=== PATIENT | female | born 1945 | race Caucasian/White ===

== ENCOUNTER → 2018-06-22 | Outpatient (CLI) | payer MEDICARE | LOC: M RAD 08:48 | DX: Z12.2 Encounter for screening for malignant neoplasm of respiratory organs (principal); F17.218 Nicotine dependence, cigarettes, with other nicotine-induced disorders; R91.8 Other nonspecific abnormal finding of lung field; J43.9 Emphysema, unspecified | CPT/HCPCS: G0297 ==

== ENCOUNTER → 2018-08-18 | Outpatient (CLI) | payer MEDICARE | LOC: M RAD 12:17 | DX: K57.90 Diverticulosis of intestine, part unspecified, without perforation or abscess without bleeding (principal); R10.12 Left upper quadrant pain; Z90.49 Acquired absence of other specified parts of digestive tract; Z90.710 Acquired absence of both cervix and uterus | CPT/HCPCS: 74176 ==

== ENCOUNTER → 2019-01-02 | Outpatient (CLI) | payer MEDICARE ==
--- NOTE | 2019-01-02 10:28 | REP ---
Clinical: Follow up abnormal lung findings. Comparison: 06/22/2018, 07/18/2017. Findings: The previously identified subpleural nodule along the posterior aspect of the right upper lobe has significantly increased in size and now measures approximately 1.9 cm maximal diameter (images [id number]). Advanced chronic COPD/emphysematous changes with subpleural scarring and scattered fibrosis is again appreciated and similar to prior examination. No effusion. No pneumothorax. Mediastinal and hilar adenopathy cannot be excluded. Aneurysmal dilatation to the ascending and descending thoracic aorta with the descending thoracic aorta measuring up to approximately 4.7 cm maximal diameter. Atherosclerotic changes to the aorta and coronary arteries noted without significant cardiomegaly or pericardial effusion identified. Impression: 1. 1.9 cm mass in the periphery of the posterior segment right upper lobe has increased in size from prior examination. Malignancy cannot be excluded. Biopsy as well as PET-CT should be considered for further investigation. Mediastinal adenopathy cannot be excluded. 2. Advanced chronic COPD and emphysematous changes with minimal scattered subpleural fibrosis and scarring similar to prior examination. 3. Thoracic aortic aneurysm with the descending aneurysm measuring 4.7 cm maximal diameter. Electronically Signed by Graham Cortez MD 01/02/2019 10:20 A
== END ==
LOC: M RAD 08:20
PROVIDERS: ATTEND Internal Medicine Pulmonary Disease
DX: R91.8 Other nonspecific abnormal finding of lung field (principal)

== ENCOUNTER → 2019-01-16 | Outpatient (CLI) | payer MEDICARE ==
[~2019-01-16] MED LIST: AMLO5TAB6 PO; ANOR1AER PO; ATOR1TAB21 PO; COLA100C5 PO; DEXI30CA2 PO; DRIS50003 PO; HYDR-3910 PO; RANI1TAB6 PO; SERT25TA85 PO; VENTAER INH
--- NOTE | 2019-01-16 21:03 | REP ---
Whole body PET CT scan for evaluation of a solitary pulmonary nodule: Comparison is a chest CT dated 01/02/2019. Whole-body scanning is performed from skull base to the upper thighs. Neck and supraclavicular areas: There is hypermetabolic uptake in multiple normal size cervical nodes bilaterally, the maximal standard uptake value is 6.9. There is hypermetabolic uptake in multiple normal size supraclavicular nodes bilaterally. The maximal standard uptake value in these nodes is 6.6. Chest: The known right upper lobe lung nodule demonstrates hypermetabolic uptake with a maximal standard uptake value of 11.9. There is hypermetabolic uptake in a normal size aorticopulmonic window mediastinal node with the aid uptake value measuring 4.8. There is uptake in a normal size subcarinal node with the standard uptake value measuring 4.3. No hilar or axillary uptake is identified. The ascending thoracic aorta is dilated measuring up to 45 mm. The proximal descending thoracic aorta is dilated measuring up to 47 mm. Abdomen, pelvis and upper thighs: There is no adrenal or hepatic uptake. There is nonspecific bowel uptake. There are no hypermetabolic foci otherwise. Impression: The patients known right upper lobe lung nodule is hypermetabolic. There are multiple normal size cervical nodes in the neck and supraclavicular nodes bilaterally that demonstrate hypermetabolic uptake. There is hypermetabolic uptake in a normal size aorticopulmonic window mediastinal node and in a normal size subcarinal mediastinal node. No other hypermetabolic foci are identified. The ascending and descending thoracic aorta are dilated as discussed. The study is performed with 8.2 mCi of F 18 FDG. Electronically Signed by Devan Bellamy MD 01/16/2019 08:54 P
== END ==
LOC: M PLARAD 13:12
PROVIDERS: ATTEND Internal Medicine Pulmonary Disease
DX: R91.1 Solitary pulmonary nodule (principal)
CPT/HCPCS: 78815; A9552

== ENCOUNTER → 2019-01-23 | Outpatient (REF) | payer MEDICARE ==
[2019-01-23 17:59] LABS: INR 1.05; PROTHROMBIN TIME 13.8 SECONDS (12.1-14.4)
[2019-01-23 18:00] LABS: PARTIAL THROMBOPLASTIN TIME 28.5 SECONDS (25.4-37.6)
== END ==
LOC: M LAB REF 17:04
PROVIDERS: ATTEND Internal Medicine Pulmonary Disease
DX: R91.1 Solitary pulmonary nodule (principal)

== ENCOUNTER 2019-02-07 08:22 | Inpatient (IN) | payer MEDICARE ==
[~2019-02-07] VITALS: Ht 157.5 cm; Wt 59.4 kg
[2019-02-07] VITALS (12 sets, daily range): BP systolic 90–182; BP diastolic 51–82
[~2019-02-07 08:22] MED LIST changes: -AMLO5TAB6 PO; -ANOR1AER PO; -ATOR1TAB21 PO; -COLA100C5 PO; -DEXI30CA2 PO; -DRIS50003 PO; -HYDR-3910 PO; +LIDOCAINE 1% MDV 20ML VIAL As Ordered ONE; -RANI1TAB6 PO; -SERT25TA85 PO; -VENTAER INH
[2019-02-07] MEDS ORDERED: RANI1TAB6 PO (08:39)
[2019-02-07] MEDS ORDERED: DEXI30CA2 PO (08:39)
[2019-02-07] MEDS ORDERED: DRIS50003 PO (08:39)
[2019-02-07] MEDS ORDERED: HYDR-3910 PO (08:39)
[2019-02-07] MEDS ORDERED: ANOR1AER PO (08:39)
[2019-02-07] MEDS ORDERED: SERT25TA85 PO (08:39)
[2019-02-07] MEDS ORDERED: ATOR1TAB21 PO (08:39)
[2019-02-07] MEDS ORDERED: VENTAER INH (08:39)
[2019-02-07] MEDS ORDERED: AMLO5TAB6 PO (08:39)
[2019-02-07] MEDS: amLODIPine 10 MG TAB PO SCH (09:00)
--- NOTE | 2019-02-07 10:35 | REP ---
CHEST, SINGLE VIEW: Single view of the chest is performed. There is a right apical pneumothorax with air gap approximately 3.3 cm. The patient is status post CT guided biopsy of a right lung nodule. Followup chest radiograph will be performed. Electronically Signed by Devan De La Rosa MD 02/07/2019 04:33 P
[2019-02-07] MEDS ORDERED: MIDAZOLAM INJ 2 MG/2 ML VIAL (J2250) As Ordered ONE (12:47)
[2019-02-07] MEDS ORDERED: MIDAZOLAM INJ 2 MG/2 ML VIAL (J2250) IV STA ×2 (13:01→14:15)
[2019-02-07] MEDS ORDERED: fentaNYL 100 MCG/2 ML INJECTION (J3010) As Ordered ONE (13:10)
[2019-02-07] MEDS ORDERED: LIDOCAINE 1% MDV 20ML VIAL As Ordered ONE (13:11)
[2019-02-07] MEDS ORDERED: fentaNYL 100 MCG/2 ML INJECTION (J3010) IV ONE (13:15)
--- NOTE | 2019-02-07 13:33 | REP ---
CHEST, POSTBIOPSY: Postbiopsy film of the chest is performed [address] guided right lung biopsy. Right pneumothorax has increased in size. Air gap superiorly is approximately 4.2 cm. There are atelectatic changes of the right lung. Electronically Signed by Devan De La Rosa MD 02/07/2019 04:36 P
[2019-02-07] MEDS ORDERED: ACETAMINOPHEN TAB 650MG DOSE (2X325MG) PO PRN (14:30)
[2019-02-07] MEDS ORDERED: BISACODYL 10 MG SUPP PR PRN (14:30)
[2019-02-07] MEDS ORDERED: PERCOCET 5MG/325MG TAB PO PRN (14:30)
[2019-02-07 14:35] LABS: ABG BASE EXCESS -2.5 (-2.0-2.0); ABG HCO3 22.9 MEQ/L (22.0-26.0); ABG O2 SATURATION 94.3 % (95.0-99.0); ABG PARTIAL PRESSURE CO2 42.1 mmHg (35.0-45.0); ABG PARTIAL PRESSURE O2 88.8 mmHg (75.0-100.0); ABG STANDARD HCO3 22.3 MEQ/L (22.0-26.0); ABG TOTAL CO2 24.2 MEQ/L (23.0-31.0); ABG pH (ARTERIAL) 7.354 UNITS (7.350-7.450)
[2019-02-07] MEDS: PERCOCET 5MG/325MG TAB PO PRN ×2 (14:35→19:53)
[2019-02-07] MEDS: KETOROLAC 30 MG/ML VIAL (J1885) IV SCH ×2 (14:36→21:11)
[2019-02-07] MEDS: ENOXAPARIN 40 MG/0.4 ML SYRINGE (J1650) SC SCH (14:57)
--- NOTE | 2019-02-07 14:58 | RO ---
DATE OF PROCEDURE: 02/07/2019 PREPROCEDURE DIAGNOSIS: Pneumothorax. POSTPROCEDURE DIAGNOSIS: Pneumothorax. PROCEDURE PERFORMED: Right chest tube. SURGEON: Satinder Gambino DO CHIEF ARCHITECT: None. ANESTHESIA: 6 of Versed IV and 50 mcg of IV fentanyl. CONSENT: Was signed and placed in the chart. DESCRIPTION OF PROCEDURE: After informed consent was reviewed with the patient, a time-out was performed. The patient was placed in the supine position. Confirming with chest x-ray and location of pneumothorax and recent biopsy, the right side was confirmed with two patient identifiers assuring appropriate procedure and appropriate side. The area was prepped with chlorhexidine in sterile barrier precautions. I then introduced 1% lidocaine subcutaneously, then down to the level of the pleura. There was aspiration of air through the syringe when entering the pleura. A enoch in the skin was made. Dissection was then performed down to the level of over the 5th rib. At upon entering the pleura over the 5th rib, there was a diaz of air. The chest tube was then inserted, guided towards the apex of the lung. The stylus was removed, and a 20-L[place]ian chest tube was then attached to pleurovac, initially with a little bit of air and then tidaling. Of note, when suturing, there was quite a bit of crepitus. This was sutured in place and pressure dressing applied over the site . Chest tube was then put to negative 20 cm of water pressure. The patient is still experiencing some chest discomfort. Chest x-ray showed adequate placement of the tube in the appropriate position with resolution of the pneumothorax with subcutaneous emphysema adjacent to the entry of the chest tube. There were no observed complications. SERA
[2019-02-07] MEDS ORDERED: LIDOCAINE 1% MDV INJ 50 ML VIAL SC ONE (15:00)
[2019-02-07] MEDS: SERTRALINE HCL 25 MG TABLET PO SCH (15:01)
[2019-02-07] MEDS ORDERED: LIDOCAINE 1% MDV 20ML VIAL SC ONE (15:15)
--- NOTE | 2019-02-07 15:37 | REP ---
Clinical: Status post chest tube placement. Comparison: 02/07/2019 at 10:14 a.m. Findings: Chest tube extends along the periphery of the right upper lung zone and the right upper lobe appears relatively well expanded without obvious significant residual pneumothorax. Subcutaneous emphysema along the lateral chest wall noted. The lung gomez demonstrate increased interstitial markings. No focal consolidation or effusion. Mediastinum and cardiac silhouette are stable. Skeletal structures are intact. Impression: 1. Chest tube in satisfactory position with subcutaneous emphysema along the right lateral chest wall. 2. No significant residual right apical pneumothorax appreciated. Electronically Signed by Graham Cortez MD 02/07/2019 03:29 P
--- NOTE | 2019-02-07 15:50 | HPE ---
DATE OF ADMISSION: 02/07/2019 HISTORY OF PRESENT ILLNESS: Ms. Aquino is a 73-year-old female referred for biopsy of a right upper lobe nodule that was hypermetabolic on positron-emission tomography (PET) imaging by Dr. Burt. There is concern for underlying malignancy. During the procedure, the patient developed a pneumothorax. There was continued persistent pneumothorax at least 40%. The patient denied any significant increase in shortness of breath, no increase in chest discomfort, but was quite nervous and hypertensive. She did not take her blood pressure medications this morning. She has a baseline cough which is occasionally productive of clear yellow mucus but there has been no significant change in her cough. She has had no fever or chills but she has had weight loss. I was called by radiology for chest tube placement. I performed this in the intensive care unit. After chest tube placement, there was resolution of the pneumothorax with evidence of subcutaneous emphysema. PAST MEDICAL HISTORY: 1. Emphysema. 2. Chronic obstructive pulmonary disease (COPD). 3. Hypertension. 4. Status post hysterectomy. 5. Status post right knee surgery. 6. Status post bowel resection. 7. Left hand surgery. 8. Gastroesophageal reflux. 9. History of rheumatoid arthritis. 10. History of nicotine dependence. 11. Vitamin D deficiency. MEDICATIONS: - albuterol two puffs inhaled every four hours - amlodipine 10 mg by mouth daily - Anoro one puff by mouth daily - atorvastatin 20 mg by mouth at bedtime - Dexilant 30 mg by mouth daily - hydralazine 25 mg by mouth twice a day - ranitidine one tablet by mouth twice a day - sertraline 25 mg by mouth daily - vitamin D 50,000 units every week ALLERGIES: No known drug allergies (NKDA). SOCIAL HISTORY: The patient has a 40-pack year history of smoking. She has no illicit drug use and no alcohol use. She lives with her who has had a stroke, has some difficulties in getting out of the home and understanding clinical situation. She has one dog. No birds in her home. She denies any asbestos exposures. No prior occupational exposures. 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 FAMILY HISTORY: Mother had hypertension and congestive heart failure. Father at age 77 with colon cancer. Brother had a myocardial infarction ([place]) at 65. REVIEW OF SYSTEMS: GENERAL: The patient has had a 45-pound weight loss over the past 6-8 months. No night sweats, fever, or chills. She denies that she has noticed any lymphadenopathy. CARDIAC: She denies any chest pain. No anginal symptoms. No radiation to the neck or jaw. She has no history of palpitations. She has no orthopnea or lower extremity edema. She denies symptoms of claudication. PULMONARY: Positive cough that is unchanged as outlined above. She has had no hemoptysis. No pleurisy until after the chest tube was placed. No history of tuberculosis or tuberculosis exposure. GASTROINTESTINAL (GI): No nausea or vomiting but she has had recurrent gastroesophageal reflux symptoms to the point where she has had multiple endoscopies. She has enlarged hiatal hernia on chest CT. No recent blood in stool. No change in bowel habits. GENITOURINARY (): No burning or pain with urination. No hematuria, nocturia, or history of nephrolithiasis. NEUROLOGIC: No unilateral weakness, history of stroke. No history of tremor. She denies history of seizure disorder. No recent head trauma. PSYCHIATRIC: Some anxiety, minimal depression. Currently, mood is fairly upbeat despite the situation. She has no mood swings. No suicidal ideation. SLEEP: She has no difficulty with sleep. No snoring, witnessed apneas. No morning headaches. SKIN: No rashes, jaundice or bruising. ENDOCRINE: No hot or cold intolerance. No history of diabetes, hypothyroidism, or hair loss. HEENT: No epistaxis. No difficulty swallowing. No change in vision. PHYSICAL EXAMINATION: On arrival to the intensive care unit (ICU), the patient was actually quite hypertensive with a systolic blood pressure of 181. Blood pressure now after pain medication, Versed is 102/73 with a respiratory rate of 28, temperature is 99.1, pulse is 70-102 in a sinus rhythm, respiratory rate of 18, oxygen saturations initially 94% to 95% on four liters, now closer to 96% to 97% on four liters. GENERAL: Awake, alert, and oriented. Affect and mood are appropriate. Nutrition and hygiene are good. Oral and nasal mucosa pink and moist without lesions. Oropharynx without erythema or exudate. Tongue is midline. Some missing teeth. NECK: Supple. No tracheal deviation or mass. LYMPHATICS: No cervical, supraclavicular, or axillary lymphadenopathy. CARDIAC: Distant S1, S2 without audible murmur, rub or gallop. No elevated jugular venous pulse (JVP). No peripheral edema. PULMONARY: Decreased breath sounds throughout with prolonged expiratory phase. No rales, rhonchi or wheezes. No dullness to percussion. No accessory muscle use. ABDOMEN: Soft, nontender, nondistended. No hepatosplenomegaly. No masses or hernias. EXTREMITIES: No clubbing, cyanosis, or edema. SKIN: No rash, jaundice, or bruising. MUSCULOSKELETAL: Some muscle wasting. No evidence of recent fracture or joint effusion. LABORATORY EVALUATION: Shows chest CT showed right pneumothorax. All other laboratories are pending. Chest x-ray was reviewed and as mentioned above, 40% pneumothorax non-resolving over time, therefore chest tube was placed at bedside. There are no other abnormalities that are new. No infiltrate. IMPRESSION: 1. Pneumothorax, status post biopsy. Chest tube was placed at bedside. We will place at 20 mg to water suction. If continues to do well, we will place to water seal tomorrow. Patient having significant amounts of pain after chest tube placement. Therefore, narcotics are being used along with ketorolac. We will continue to monitor renal function especially due to the age of the patient. Oxygen will continue to be supplied in order to help resorption of the pneumothorax. Nebulized therapy for history of emphysema will also be continued. 2. Hypertension. Blood pressure medications were reinitiated, however, at this point in time, are being held as her recent sedation from the procedure has caused a softer blood pressure. We will continue to monitor for the need for additional antihypertensives. 3. Gastroesophageal reflux. We will continue proton pump inhibitor. 4. Depression. We will continue sertraline.
[2019-02-07] MEDS: IPRATROPIUM 0.5MG/ALBUTEROL 2.5MG INH SOL UD 3ML (DUONEB)(J7620) NEB SCH ×2 (16:00→19:19)
[2019-02-07 16:17] LABS: ALBUMIN 2.9 GM/DL (3.2-5.2); BILIRUBIN,TOTAL 0.3 MG/DL (0.2-1.0); CALCIUM LEVEL 8.7 MG/DL (8.8-10.2); GLOMERULAR FILTRATION RATE 57.9 (>39); TOTAL PROTEIN 6.2 GM/DL (6.4-8.2)
[2019-02-07 16:23] LABS: BASO # 0.1 10^3/uL (0.0-0.2); BASO % 0.8 % (0.0-1.0); EOS # 0.2 10^3/uL (0.0-0.50); EOS % 1.9 % (0.0-3.0); HEMATOCRIT 32.4 % (36.0-47.0); HEMOGLOBIN 10.3 g/dl (12.0-15.5); LYMPH # 0.8 10^3/uL (1.5-4.5); LYMPH % 9.9 % (24.0-44.0); MEAN CORPUSCULAR HEMOGLOBIN 31.4 pg (27.0-33.0); MEAN CORPUSCULAR HGB CONC 31.8 g/dl (32.0-36.5); MEAN CORPUSCULAR VOLUME 98.8 fl (80.0-96.0); MONO # 0.4 10^3/uL (0.0-0.8); MONO % 5.2 % (0.0-5.0); NEUTROPHILS # 6.9 10^3/uL (1.8-7.7); NEUTROPHILS % 81.7 % (36.0-66.0); PLATELET COUNT, AUTOMATED 303 10^3/uL (150-450); RED BLOOD COUNT 3.28 10^6/uL (4.00-5.40); WHITE BLOOD COUNT 8.4 10^3/uL (4.0-10.0)
--- NOTE | 2019-02-07 16:38 | REP ---
The procedure was performed under the personal supervision of Dr. De La Rosa. The patient has a history of a right upper lobe lung nodule that was hypermetabolic on a previous CT scan dated 01/16/2019. The risks and benefits of the procedure were explained to the patient and informed consent was obtained. The right upper lobe lung nodule was localized using CT guidance. The skin was prepped and prepped and draped in a sterile fashion. 4 mL of 1% lidocaine was used as a local anesthetic. Using CT guidance and 19/20 gauge coaxial needle biopsy system was inserted and advanced into the nodule. Four core biopsy samples were obtained and sent to the lab. CT images obtained directly after the biopsy revealed a a small pneumothorax. Air was a manually suctioned from the pleural space but a small pneumothorax persisted. The patient's O2 saturations remained at 96%, and she was placed on 2 liters of O2 via nasal cannula. A chest x-ray was performed and the images demonstrated a right apical pneumothorax with an air gap of approximately 3.3 cm. 2 hours later and repeat chest x-ray Blaze was performed that show the pneumothorax to be getting worse. Dr. Gambino was consulted for chest tube placement and the patient was transferred into her care. Reviewed by NORIS Daly 02/07/2019 01:06 P Electronically Signed by Devan De La Rosa MD 02/07/2019 04:29 P
[2019-02-07] MEDS: DOCUSATE SODIUM 100 MG CAP PO SCH (19:53)
[2019-02-07] MEDS: ATORVASTATIN 20 MG TAB PO SCH (19:54)
[2019-02-07] MEDS: **hydrALAZINE HCL** 25 MG TAB PO SCH (19:54)
[2019-02-08] VITALS (9 sets, daily range): BP systolic 118–155; BP diastolic 53–73
[2019-02-08] MEDS: KETOROLAC 30 MG/ML VIAL (J1885) IV SCH ×2 (02:58→08:07)
[2019-02-08 04:06] LABS: BASO # 0.1 10^3/uL (0.0-0.2); EOS # 0.1 10^3/uL (0.0-0.50); EOS % 1.9 % (0.0-3.0); HEMATOCRIT 32.4 % (36.0-47.0); HEMOGLOBIN 10.2 g/dl (12.0-15.5); LYMPH # 1.2 10^3/uL (1.5-4.5); LYMPH % 16.6 % (24.0-44.0); MEAN CORPUSCULAR HEMOGLOBIN 31.1 pg (27.0-33.0); MEAN CORPUSCULAR HGB CONC 31.5 g/dl (32.0-36.5); MEAN CORPUSCULAR VOLUME 98.8 fl (80.0-96.0); MONO # 0.5 10^3/uL (0.0-0.8); MONO % 6.8 % (0.0-5.0); NEUTROPHILS # 5.4 10^3/uL (1.8-7.7); NEUTROPHILS % 73.4 % (36.0-66.0); PLATELET COUNT, AUTOMATED 287 10^3/uL (150-450); RED BLOOD COUNT 3.28 10^6/uL (4.00-5.40); WHITE BLOOD COUNT 7.3 10^3/uL (4.0-10.0)
[2019-02-08 04:34] LABS: CALCIUM LEVEL 8.5 MG/DL (8.8-10.2); CREATININE FOR GFR 1.29 MG/DL (0.55-1.30); GLOMERULAR FILTRATION RATE 43.1 (>39); POTASSIUM SERUM 4.6 MEQ/L (3.5-5.1)
[2019-02-08 06:00] LABS: ABG BASE EXCESS -0.8 (-2.0-2.0); ABG HCO3 24.5 MEQ/L (22.0-26.0); ABG O2 SATURATION 93.7 % (95.0-99.0); ABG PARTIAL PRESSURE CO2 43.1 mmHg (35.0-45.0); ABG PARTIAL PRESSURE O2 78.8 mmHg (75.0-100.0); ABG STANDARD HCO3 23.7 MEQ/L (22.0-26.0); ABG TOTAL CO2 25.8 MEQ/L (23.0-31.0); ABG pH (ARTERIAL) 7.372 UNITS (7.350-7.450)
[2019-02-08] MEDS: IPRATROPIUM 0.5MG/ALBUTEROL 2.5MG INH SOL UD 3ML (DUONEB)(J7620) NEB SCH ×4 (07:39→19:39)
[2019-02-08] MEDS: PERCOCET 5MG/325MG TAB PO PRN (08:06)
[2019-02-08] MEDS: SERTRALINE HCL 25 MG TABLET PO SCH (08:07)
[2019-02-08] MEDS: DOCUSATE SODIUM 100 MG CAP PO SCH ×3 (08:08→20:17)
[2019-02-08] MEDS: amLODIPine 10 MG TAB PO SCH (08:08)
[2019-02-08] MEDS: ENOXAPARIN 40 MG/0.4 ML SYRINGE (J1650) SC SCH (08:08)
[2019-02-08] MEDS: PANTOPRAZOLE 40MG TAB (PROTONIX) PO SCH (08:08)
[2019-02-08] MEDS: **hydrALAZINE HCL** 25 MG TAB PO SCH ×2 (08:08→20:16)
[2019-02-08] MEDS: MOM 30ML SUSPENSION UDC PO SCH (08:09)
[2019-02-08] MEDS ORDERED: FAMOTIDINE 20 MG TAB PO SCH (09:00)
[2019-02-08] MEDS ORDERED: PANTOPRAZOLE 40MG INJ (PROTONIX) (C9113) IV SCH (09:00)
[2019-02-08] MEDS: ONDANSETRON 4MG/2ML VIAL (J2405) IV PRN ×2 (09:17→13:45)
[2019-02-08] MEDS ORDERED: NS 500 ML IV ONE (10:15)
--- NOTE | 2019-02-08 10:27 | CCN ---
DATE OF SERVICE: 02/08/2019 PULMONARY CRITICAL CARE NOTE: Ms. Aquino is seen in the intensive care unit (ICU). She has just returned from x-ray for a repeat chest x-ray. She has a chest tube in and is doing well without any significant pain or discomfort. She is a little nauseous after receiving pain medications, but otherwise denies any left-sided chest pain. She has not had a bowel movement yet today. Chest tube is in place. Chest tube output is about 30 mL overnight. There is no air leak. It is tidaling. Patient is afebrile. Her creatinine has climbed a little bit from 1.00 to 1.29 today. PHYSICAL EXAMINATION: VITAL SIGNS: Temperature is 98.6, pulse 78, respiratory 18, blood pressure is 136/63, pulse oximetry is 93% on 2 liters. GENERAL: Patient is alert and oriented. She speaks in complete sentences. HEENT: Head is normocephalic, atraumatic. Moist mucous membranes. NECK: Neck is supple with no cervical lymphadenopathy. No jugular venous distention (JVD). Trachea is midline. CARDIAC: Regular rate and rhythm. S1, S2. No appreciable murmurs. PULMONARY: Crepitations heard throughout, but otherwise good breath sounds. No wheezing, rales or rhonchi. ABDOMEN: Positive bowel sounds. Soft. Nontender. No rebound or guarding. No hepatosplenomegaly. EXTREMITIES: No clubbing, cyanosis or edema. SKIN: Skin is warm and dry. LABORATORY DATA: ABG pH 7.372, pCO2 43.1, pO2 78.8, HCO3 24.5. WBC 7.3, hemoglobin 10.2, hematocrit 32.4, platelets 287. Sodium 141, potassium 4.6, chloride 109, carbon dioxide 28, BUN 24, creatinine 1.29, glucose 102, calcium 8.5. CHEST X-RAY: Chest x-ray shows good placement of chest tube. Prior pneumothorax has resolved. ASSESSMENT AND PLAN: 1. Pneumothorax requiring chest tube placement. Chest tube with good placement on x-ray. No air leak. Today, the chest tube will be changed to water-seal. Will repeat chest x-ray in 4 hours. If that does not show recurrence, then consider clamping chest tube. 2. Renal insufficiency. The patient's creatinine is up today 1.29 from 1.00 yesterday. Plan is to decrease her Toradol from 30 mg every 6 to 15 15 mg every 6 as needed, pain. Continue to monitor. The plan will be to give the patient a 500 mL bolus of normal saline. DISPOSITION: Patient is doing well enough to be transferred to progressive care unit (PCU). Will continue to follow.
--- NOTE | 2019-02-08 11:24 | REP ---
CHEST X-RAY: Two views. HISTORY: Pneumothorax. COMPARISON CHEST X-RAY: February 07, 2019. FINDINGS: A right chest tube is seen in place along the lateral aspect of the rib cage. There is soft tissue emphysema in the extrathoracic soft tissues on the right side. A tiny sliver of apical pleural air is seen on the right consistent with tiny right apical pneumothorax. The left lung is clear. There are some increased markings in the right upper lobe perihilar region today. Cardiomediastinal silhouette is unchanged. The aorta is rather tortuous. IMPRESSION: Tiny right apical pneumothorax. Right chest tube in place. Subcutaneous emphysema is again noted along the right chest wall in the extrathoracic soft tissues. Electronically Signed by Quentin Bradshaw MD 02/08/2019 01:03 P
--- NOTE | 2019-02-08 13:54 | REP ---
Chest x-ray: Two views. History: Pneumothorax. Chest tube seven change to water seal. Comparison study: Earlier on today's date. Findings: Right chest tube remains in place and laterally. Subcutaneous emphysema persists essentially unchanged. There is no significant pneumothorax. There is a little less apical pleural air visible on the current radiograph. Pleural angles are sharp. No new infiltrate is seen. Some parenchymal opacity persists in the right upper lobe region. Impression: There is a little less the apical pleural air. Tiny amount. No other significant radiographic change. Electronically Signed by Quentin Bradshaw MD 02/08/2019 01:45 P
[2019-02-08] MEDS: KETOROLAC 30 MG/ML VIAL (J1885) IV PRN (16:09)
[2019-02-08] MEDS: NORCO, ANEXSIA 5/325MG TABLET (HYDROcodone/ACETAMINOPHEN) PO PRN ×2 (16:10→20:17)
[2019-02-08] MEDS: METOCLOPRAMIDE 10 MG TAB PO SCH ×2 (16:52→20:17)
[2019-02-08] MEDS: ATORVASTATIN 20 MG TAB PO SCH (20:16)
[2019-02-09] VITALS (7 sets, daily range): BP systolic 110–136; BP diastolic 56–76
[2019-02-09] MEDS: NORCO, ANEXSIA 5/325MG TABLET (HYDROcodone/ACETAMINOPHEN) PO PRN ×3 (00:34→09:07)
[2019-02-09] MEDS: METOCLOPRAMIDE 10 MG TAB PO SCH ×2 (00:35→04:39)
[2019-02-09 05:42] LABS: BASO # 0.1 10^3/uL (0.0-0.2); BASO % 0.7 % (0.0-1.0); EOS # 0.2 10^3/uL (0.0-0.50); EOS % 2.3 % (0.0-3.0); HEMATOCRIT 33.9 % (36.0-47.0); HEMOGLOBIN 10.6 g/dl (12.0-15.5); LYMPH # 0.9 10^3/uL (1.5-4.5); LYMPH % 11.2 % (24.0-44.0); MEAN CORPUSCULAR HEMOGLOBIN 31.4 pg (27.0-33.0); MEAN CORPUSCULAR HGB CONC 31.3 g/dl (32.0-36.5); MEAN CORPUSCULAR VOLUME 100.3 fl (80.0-96.0); MONO # 0.6 10^3/uL (0.0-0.8); MONO % 7.6 % (0.0-5.0); NEUTROPHILS # 6.3 10^3/uL (1.8-7.7); PLATELET COUNT, AUTOMATED 280 10^3/uL (150-450); RED BLOOD COUNT 3.38 10^6/uL (4.00-5.40); WHITE BLOOD COUNT 8.1 10^3/uL (4.0-10.0)
[2019-02-09 06:00] LABS: CALCIUM LEVEL 8.4 MG/DL (8.8-10.2); CREATININE FOR GFR 1.03 MG/DL (0.55-1.30); GLOMERULAR FILTRATION RATE 55.9 (>39)
[2019-02-09] MEDS: IPRATROPIUM 0.5MG/ALBUTEROL 2.5MG INH SOL UD 3ML (DUONEB)(J7620) NEB SCH ×4 (07:18→19:58)
[2019-02-09] MEDS: ONDANSETRON 4MG/2ML VIAL (J2405) IV PRN ×2 (07:49→12:41)
[2019-02-09] MEDS: amLODIPine 10 MG TAB PO SCH (09:05)
[2019-02-09] MEDS: DOCUSATE SODIUM 100 MG CAP PO SCH ×2 (09:05→21:29)
[2019-02-09] MEDS: **hydrALAZINE HCL** 25 MG TAB PO SCH ×2 (09:06→21:29)
[2019-02-09] MEDS: SERTRALINE HCL 25 MG TABLET PO SCH (09:06)
[2019-02-09] MEDS: PANTOPRAZOLE 40MG TAB (PROTONIX) PO SCH (09:06)
[2019-02-09] MEDS: ENOXAPARIN 40 MG/0.4 ML SYRINGE (J1650) SC SCH (09:07)
[2019-02-09] MEDS: MOM 30ML SUSPENSION UDC PO SCH (09:07)
--- NOTE | 2019-02-09 09:15 | REP ---
Chest x-ray: Two views. History: Pneumothorax. Comparison study: February 08, 2019. Findings: A right-sided chest tube is seen in place unchanged. There is extrathoracic soft tissue emphysema along the right chest wall as before. There is a tiny right apical pneumothorax, 6 mm thick collection at the apex. This is very slightly larger than on yesterday's radiograph. No other new finding. Electronically Signed by Quentin Bradshaw MD 02/09/2019 09:06 A
--- NOTE | 2019-02-09 11:28 | IPN ---
DATE:02/09/2019 The patient was seen and examined this morning during bedside rounds. The patient's right chest tube was placed to water seal yesterday and she had a repeat chest x-ray done in the afternoon, which showed possible small apical pneumothorax on the right side. This morning, she was noted to have tidaling in the Pleur-Evac but no air leak. She reports her breathing has been doing better. She does continue to have some tenderness at the chest tube insertion site, denies any significant shortness of breath or dyspnea on exertion. She does have some cough, occasionally productive of mucus, which has been improving. She continues to have some nausea. Yesterday, she did have an episode of vomiting and was made nothing by mouth in the afternoon. This morning she does have some slight nausea but has not had any vomiting. She has not had any bowel movements since arriving in the hospital 2 days ago. The patient is urinating, has a small voids with each urination. She has no fevers or chills overnight. PHYSICAL EXAMINATION: Temperature 97.9, pulse 92, respirations 18, blood pressure 118/58, oxygen sat 92-93% on 2 liters nasal cannula. General: The patient is awake, alert and oriented. She is speaking in complete sentences, does not appear to be any acute distress. HEENT: Normocephalic, atraumatic. Moist mucous membranes. Neck is supple. No jugular venous distention (JVD). Trachea is midline. Cardiac: Regular rate and rhythm. Normal S1, S2. No murmurs appreciated. Pulmonary: Decreased breath sounds with prolonged expiration, some crackles on the right base. No wheezing or rhonchi noted. Abdomen: Soft, nontender, very mildly distended in the suprapubic region. No masses palpated. Bowel sounds are present. Extremities: No lower extremity edema bilaterally. LABORATORY DATA WBC 8.1, hemoglobin 10.6, platelets 280. Chemistry: Sodium 140, potassium 4.0, chloride 107, bicarbonate 26, BUN 24, creatinine 1.03, glucose 101. Chest x-ray this morning shows a right chest tube in place. There is very possible small right apical pneumothorax. There is some subcutaneous emphysema on the right side of the chest, possibly slightly improved. ASSESSMENT/PLAN: The patient is a 73-year-old female with a past medical history of chronic obstructive pulmonary disease (COPD) with emphysema, hypertension, gastroesophageal reflux disease, rheumatoid arthritis who had a CT-guided biopsy for a right upper lobe nodule, which was hypermetabolic on PET imaging. She had a postprocedural pneumothorax on the right side requiring chest tube placement. With placement of the chest tube, there was resolution of her previously noted pneumothorax. The patient was placed on water seal yesterday and repeat chest x-ray showed possibly a small right apical pneumothorax, which appears present again today. However, there is no significant air leak noted from her chest tube. There is some tidaling. Therefore, we will attempt to clamp her chest tube and repeat a chest x-ray in a few hours to monitor for pneumothorax. If there is no enlarging pneumothorax would remove chest tube. Continue the patient on nasal canal supplementation at 2 liters per minute for now. Continue with incentive spirometer. Continue with DuoNebs. The patient also was noted to have some nausea and vomiting, as well as some constipation, likely secondary to the opioid pain medications that she received postprocedure. Would hold off on her opioid medications for now unless she has severe pain. The patient was n.p.o. yesterday; however, today has not had any further episodes of vomiting. We will restart her with liquid diet and continue with Zofran as needed for nausea. She did receive some Colace and Reglan, as well as receiving some milk of magnesia. We will also order a suppository if she still has not had a bowel movement. We will also check a bladder scan to make sure she does not have any significant urinary retention. She is voiding but small amounts with each urination. Continue with her home medications for blood pressure. Continue with proton pump inhibitor. We will discontinue the Pepcid as she is also on Protonix. We will continue with deep vein thrombosis (DVT) prophylaxis. MTDD
[2019-02-09] MEDS: KETOROLAC 30 MG/ML VIAL (J1885) IV PRN (12:51)
--- NOTE | 2019-02-09 14:31 | REP ---
CHEST X-RAY: Semi-erect AP view. HISTORY: Pneumothorax. Chest tube reassessment after clamping. COMPARISON STUDY: February 09, 2019. FINDINGS: Oxygen delivery tubing is seen. A right-sided chest tube remains in place. On the current exam, there is a tiny right apical pneumothorax again seen decreased in size from the film done at 07:59 a.m. on this date. There is a little subcutaneous emphysema along the right lateral chest wall. Lung gomez are unchanged. Heart is not enlarged. The aorta is tortuous as before. IMPRESSION: Tiny right apical pneumothorax decreased in size from the prior study. Electronically Signed by Quentin Bradshaw MD 02/09/2019 02:40 P
[2019-02-09] MEDS: ATORVASTATIN 20 MG TAB PO SCH (21:30)
[2019-02-10 04:00] VITALS: BP 126/68
[2019-02-10 05:26] LABS: BASO % 0.6 % (0.0-1.0); EOS # 0.2 10^3/uL (0.0-0.50); HEMATOCRIT 30.7 % (36.0-47.0); HEMOGLOBIN 9.7 g/dl (12.0-15.5); LYMPH # 0.9 10^3/uL (1.5-4.5); MEAN CORPUSCULAR HEMOGLOBIN 31.4 pg (27.0-33.0); MEAN CORPUSCULAR HGB CONC 31.6 g/dl (32.0-36.5); MEAN CORPUSCULAR VOLUME 99.4 fl (80.0-96.0); MONO # 0.5 10^3/uL (0.0-0.8); MONO % 7.5 % (0.0-5.0); NEUTROPHILS # 5.4 10^3/uL (1.8-7.7); NEUTROPHILS % 75.6 % (36.0-66.0); PLATELET COUNT, AUTOMATED 271 10^3/uL (150-450); RED BLOOD COUNT 3.09 10^6/uL (4.00-5.40); WHITE BLOOD COUNT 7.1 10^3/uL (4.0-10.0)
[2019-02-10 05:44] LABS: BLOOD UREA NITROGEN 18 MG/DL (7-18); CALCIUM LEVEL 8.3 MG/DL (8.8-10.2); CARBON DIOXIDE LEVEL 28 MEQ/L (21-32); CHLORIDE LEVEL 105 MEQ/L (98-107); CREATININE FOR GFR 0.86 MG/DL (0.55-1.30); GLOMERULAR FILTRATION RATE > 60.0 (>39); GLUCOSE, FASTING 94 MG/DL (70-100); SODIUM LEVEL 138 MEQ/L (136-145)
[2019-02-10] MEDS: IPRATROPIUM 0.5MG/ALBUTEROL 2.5MG INH SOL UD 3ML (DUONEB)(J7620) NEB SCH ×2 (07:08→11:41)
[2019-02-10 08:00] VITALS: BP 148/75
[2019-02-10] MEDS: MOM 30ML SUSPENSION UDC PO SCH (08:43)
[2019-02-10] MEDS: DOCUSATE SODIUM 100 MG CAP PO SCH (08:43)
[2019-02-10] MEDS: ENOXAPARIN 40 MG/0.4 ML SYRINGE (J1650) SC SCH (08:43)
[2019-02-10] MEDS: PANTOPRAZOLE 40MG TAB (PROTONIX) PO SCH (08:43)
[2019-02-10] MEDS: SERTRALINE HCL 25 MG TABLET PO SCH (08:43)
[2019-02-10 08:47] VITALS: BP 148/75
[2019-02-10] MEDS: amLODIPine 10 MG TAB PO SCH (08:47)
[2019-02-10] MEDS: **hydrALAZINE HCL** 25 MG TAB PO SCH (08:47)
--- NOTE | 2019-02-10 08:53 | REP ---
Clinical: Pneumothorax. Technique: PA and lateral. Comparison: 02/09/2019. Findings: Right chest tube has been removed and no significant residual pneumothorax is identified. Patchy alveolar and interstitial infiltrates involving the right lung as well as small right pleural reaction and subcutaneous emphysema along the right lateral chest wall noted. Trace left basilar atelectasis cannot be excluded. Mediastinum and cardiac silhouette are stable and within normal limits. The skeletal structures are intact. Impression: Pleuroparenchymal changes involving the right hemithorax. No significant residual right pneumothorax. Electronically Signed by Graham Cortez MD 02/10/2019 08:44 A
[2019-02-10] MEDS ORDERED: COLA100C5 PO (11:30)
--- NOTE | 2019-02-10 11:47 | DS.PDOC ---
Discharge Summary General Date of Admission Feb 07, 2019 at 13:06 Date of Discharge 02/10/19 Discharge Summary PROCEDURES PERFORMED DURING STAY: CT guided right nodule biopsy, Right chest tube insertion ADMITTING DIAGNOSES: 1. Post-procedural right pneumothorax DISCHARGE DIAGNOSES: 1. Post-procedural right pneumothorax 2. Constipation COMPLICATIONS/CHIEF COMPLAINT: Rt Upper Lobe Lung Nodule. HISTORY OF PRESENT ILLNESS: Ms. Aquino is a 73-year-old female with hx of COPD with emphysema, GERD, HTN, rheumatoid arthritis who was referred for biopsy of a right upper lobe nodule that was hypermetabolic on positron-emission tomography (PET) imaging by Dr. Burt. There is concern for underlying malignancy. During the procedure, the patient developed a pneumothorax. There was continued persistent pneumothorax at least 40%. The patient denied any significant increase in shortness of breath, no increase in chest discomfort, but was quite nervous and hypertensive. She did not take her blood pressure medications this morning. She has a baseline cough which is occasionally productive of clear yellow mucus but there has been no significant change in her cough. She has had no fever or chills but she has had weight loss. A right chest tube was placed with improvement in right pneumothorax with evidence of subcutaneous emphysema afterwards. HOSPITAL COURSE: The patient was placed on water seal and repeat chest x-ray showed possibly a small right apical pneumothorax. However, there was no significant air leak noted from her chest tube. Her chest tube was clamped and a repeat CXR did not show any significant pneumothorax on right and so it was removed yesterday. This morning a repeat CXR did not show any significant pneumothorax on the right, the subcutaneous emphysema is improving and there is some blunting of bilateral costaphrenic angles and atelectasis in bases. There is mild patchy infiltrate in RUL. Patient had also had nausea and vomiting post-procedure. She was given pain medication post-procedure and noted to be constipated. Her nausea and vomiting has resolved, she tolerated a small meal well. Has no abdominal distention, bowel sounds are present, has not had a bowel movement yet however she has also not been eating much. She denies any chest pains, SOB, fevers/chills. Her cough is improving. Patient was taken off nasal cannula oxygen supplementation and noted to desaturate on room air to 86%. She was placed on 2L/min NC with improvement in her SpO2 to 92%. She will therefore be discharged on continuous nasal cannula oxygen supplementation and will follow-up with pulmonary with repeat pulse oximeter readings at that time. DISCHARGE MEDICATIONS: Please see below. ALLERGIES: Please see below. PHYSICAL EXAMINATION ON DISCHARGE: VITAL SIGNS: Please see below. General: The patient is awake, alert and oriented. She is speaking in complete sentences, does not appear to be any acute distress. HEENT: Normocephalic, atraumatic. Moist mucous membranes. Neck is supple. No jugular venous distention (JVD). Trachea is midline. Cardiac: Regular rate and rhythm. Normal S1, S2. No murmurs appreciated. Pulmonary: Decreased breath sounds with prolonged expiration, some crackles at bases with occasional inspiratory squeaks. Abdomen: Soft, not distended, mild tenderness in left lower quadrant. Hypoactive bowel sounds present. No masses palpated Extremities: No lower extremity edema bilaterally. LABORATORY DATA: Please see below. IMAGING: CXR 02/10/19 no significant pneumothorax on the right, the subcutaneous emphysema is improving and there is some blunting of bilateral costaphrenic angles and atelectasis in bases. There is mild patchy infiltrate in RUL. ACTIVITY: As tolerated DIET: Regular cardiac diet DISCHARGE PLAN: Discharge home, follow-up with pulmonary with Dr. Burt as previously scheduled Continue incentive spirometry and continuous nasal cannula oxygen supplementation ITEMS TO FOLLOWUP ON ON OUTPATIENT: 1. Follow-up results of right lung biopsy 2. Follow-up pulse oximetry on room air at follow-up visit DISCHARGE CONDITION: Stable TIME SPENT ON DISCHARGE: Greater than 30 minutes. Vital Signs/I&Os Vital Signs Date Time Temp Pulse Resp B/P (MAP) Pulse Ox O2 Delivery O2 Flow Rate FiO2 02/10/19 10:40 92 2.0 02/10/19 08:47 104 148/75 02/10/19 08:00 99.4 20 I&O- Last 24 Hours up to 6 AM 02/10/19 06:00 Intake Total 420 ml Output Total 700 ml Balance -280 ml Laboratory Data Labs 24H Laboratory Tests 2 02/10/19 05:04: Immature Granulocyte % (Auto) 0.3, White Blood Count 7.1, Red Blood Count 3.09L, Hemoglobin 9.7L, Hematocrit 30.7L, Mean Corpuscular Volume 99.4H, Mean Corpuscular Hemoglobin 31.4, Mean Corpuscular Hemoglobin Concent 31.6L, Red Cell Distribution Width 13.8, Platelet Count 271, Neutrophils (%) (Auto) 75.6H, Lymphocytes (%) (Auto) 13.0L, Monocytes (%) (Auto) 7.5H, Eosinophils (%) (Auto) 3.0, Basophils (%) (Auto) 0.6, Neutrophils # (Auto) 5.4, Lymphocytes # (Auto) 0.9L, Monocytes # (Auto) 0.5, Eosinophils # (Auto) 0.2, Basophils # (Auto) 0.0, Nucleated Red Blood Cells % (auto) 0.0, Anion Gap 5L, Glomerular Filtration Rate > 60.0, Blood Urea Nitrogen 18, Creatinine 0.86, Sodium Level 138, Potassium Level 4.0, Chloride Level 105, Carbon Dioxide Level 28, Calcium Level 8.3L CBC/BMP Laboratory Tests 02/10/19 05:04 Red Blood Count 3.09 L, Mean Corpuscular Volume 99.4 H, Mean Corpuscular Hemoglobin 31.4, Mean Corpuscular Hemoglobin Concent 31.6 L, Red Cell Distribution Width 13.8, Neutrophils (%) (Auto) 75.6 H, Lymphocytes (%) (Auto) 13.0 L, Monocytes (%) (Auto) 7.5 H, Eosinophils (%) (Auto) 3.0, Basophils (%) (Auto) 0.6, Neutrophils # (Auto) 5.4, Lymphocytes # (Auto) 0.9 L, Monocytes # (Auto) 0.5, Eosinophils # (Auto) 0.2, Basophils # (Auto) 0.0, Calcium Level 8.3 L Discharge Medications Scheduled (Dexilant) 30 Mg Cap, 30 MG PO DAILY, (Reported) (Anoro Ellipta 62.5-25 Mcg/INH) 1 Aer Aer, 1 PUFF PO DAILY, (Reported) Amlodipine Besylate (Amlodipine Besylate) 5 Mg Tab, 10 MG PO DAILY, (Reported) Atorvastatin Calcium (Atorvastatin Calcium) 20 Mg Tab, 20 MG PO QHS, (Reported) Docusate Sodium (Colace) 100 Mg Cap, 100 MG PO BID Hydralazine HCl (Hydralazine HCl) 25 Mg Tab, 25 MG PO BID, (Reported) Ranitidine HCl (Ranitidine [address]) 150 Mg Tab, 1 TAB PO BID, (Reported) Sertraline Hcl (Sertraline HCl) 25 Mg Tab, 25 MG PO DAILY, (Reported) Vitamin D (Drisdol) 50,000 Unit Cap, 50,000 UNIT PO QWEEK, (Reported) FRIDAYS Scheduled PRN Albuterol Sulfate (Ventolin Hfa) 108 Mcg/Act Aer, 2 PUFF INH Q4H PRN for SHORTNESS OF BREATH, (Reported) Allergies Coded Allergies: No Known Allergies (Unverified Allergy, Unknown, 02/07/19) PELON RAVI MD Feb 10, 2019 11:47
== END 2019-02-10 13:00 | disposition home or self-care (01) | DRG 201 ==
LOC: M RADPRO 08:22 → M ICU 13:06 → M PCU 02-08 17:04
PROVIDERS: ADMIT Internal Medicine Pulmonary Disease; ATTEND Internal Medicine Pulmonary Disease
PROC: 0W9930Z Drainage of Right Pleural Cavity with Drainage Device, Percutaneous Approach (ICD-10-PCS; principal; 2019-02-07)
DX: J95.811 Postprocedural pneumothorax (principal); I10 Essential (primary) hypertension; R91.1 Solitary pulmonary nodule; K59.00 Constipation, unspecified; J43.9 Emphysema, unspecified; K21.9 Gastro-esophageal reflux disease without esophagitis; M06.9 Rheumatoid arthritis, unspecified; Z79.899 Other long term (current) drug therapy; E55.9 Vitamin D deficiency, unspecified; F17.200 Nicotine dependence, unspecified, uncomplicated; F32.9 Major depressive disorder, single episode, unspecified

== ENCOUNTER → 2019-02-28 | Outpatient (CLI) | payer MEDICARE ==
[~2019-02-28] MED LIST changes: +AMLO5TAB6 PO; +ANOR1AER PO; +ATIV1TAB10 PO; +ATOR1TAB21 PO; +COLA100C5 PO; +DEXI30CA2 PO; +DRIS50003 PO; +HYDR-3910 PO; -LIDOCAINE 1% MDV 20ML VIAL As Ordered ONE; +PROHANCE 279.3MG/ML 5ML VIAL (A9576) As Ordered ONE; +RANI1TAB6 PO; +SERT25TA85 PO; +SPIR-10 PO; +VENTAER INH
--- NOTE | 2019-02-28 16:51 | REP ---
MR BRAIN WITHOUT AND WITH CONTRAST: HISTORY: Lung carcinoma. CONTRAST: ProHance 6 mL. Areas of increased signal intensity on T2 weighted images are present in the periventricular and subcortical white matter and earline. This represents small vessel ischemic disease. There is no intraparenchymal hemorrhage, acute infarct, mass or midline shift. There is no abnormal enhancement. The ventricular system and cortical sulci are dilated consistent with minimal volume loss. There is no extracerebral collection. The sinuses are clear. IMPRESSION:1. Small vessel ischemic disease. 2. Minimal volume loss. Electronically Signed by Miky Garces MD 02/28/2019 04:53 P
== END ==
LOC: M RAD 14:34
PROVIDERS: ATTEND Internal Medicine Medical Oncology
DX: I67.82 Cerebral ischemia (principal); C34.11 Malignant neoplasm of upper lobe, right bronchus or lung
CPT/HCPCS: 70553; A9576

== ENCOUNTER → 2019-03-06 | Outpatient (CLI) | payer MEDICARE ==
[~2019-03-06] MED LIST changes: +ISOVUE-370 76% 100ML VIAL (Q9967) As Ordered ONE; -PROHANCE 279.3MG/ML 5ML VIAL (A9576) As Ordered ONE
--- NOTE | 2019-03-06 16:14 | REP ---
CT NECK WITH CONTRAST: HISTORY: Lung carcinoma. CONTRAST: Isovue-370, 75 mL Calcifications are present in the tonsils. This is secondary to previous inflammatory disease. The naso-, nano- and hypopharynx, larynx and subglottic trachea are otherwise normal in appearance. The salivary and thyroid glands are normal in size and density. Small lymph nodes less than 1 cm in size are present in the internal jugular chains, posterior triangles, submandibular and submental areas. Atherosclerotic calcification is present at the carotid bifurcations. Degenerative change is present in the cervical spine. A 2 cm irregular mass is present in the right lung apex. An increase in interstitial markings is present in the the lung apices. The visualized sinuses are clear. IMPRESSION: 1. There is no neck mass or adenopathy. 2. There is an irregular 2 cm mass in the right lung apex. Please refer to CT chest performed this same date. Electronically Signed by Miky Garces MD 03/06/2019 04:15 P
--- NOTE | 2019-03-06 16:55 | REP ---
REASON: History of squamous cell carcinoma. COMPARISON: Multiple the latest 01/02/2019 CONTRAST: 100 mL Isovue-370. There is thoracic aortic aneurysmal dilatation/ectasia with the maximal ascending aortic dimension of 4.4 cm and the maximal descending thoracic aortic dimension 4.7 cm unchanged. There is no mediastinal or hilar adenopathy. There are no pleural or pericardial effusions. The imaged upper abdomen is unchanged and again seen to be within normal limits. The imaged osseous structures are also stable. Evaluation of the lung gomez again shows extensive emphysematous changes. The spiculated 1.8 cm sized nodule in the posterior segment of the right upper lobe is unchanged it however, has increased in size from the 06/22/2018 CT of the chest and was not present on the 07/18/2017 exam. Scattered asymmetric densities are again seen throughout the lung gomez with peripheral honeycombing and traction bronchiectasis of the cylindrical type. No new abnormal nodules, masses, or opacities seen to have developed. IMPRESSION:1. Thoracic aortic aneurysm/ectasia as described above. 2. Stable spiculated nodule posterior segment of the right upper lobe as described above. 3. Diffuse emphysematous changes and other related findings as described above. Electronically Signed by Everardo Valdovinos DO 03/06/2019 05:24 P
== END ==
LOC: M RAD 14:52
PROVIDERS: ATTEND Internal Medicine Medical Oncology
DX: C34.90 Malignant neoplasm of unspecified part of unspecified bronchus or lung (principal); I71.2 Thoracic aortic aneurysm, without rupture
CPT/HCPCS: 70491; 71260; Q9967

== ENCOUNTER → 2019-07-13 | Outpatient (REF) | payer MEDICARE ==
[~2019-07-13] MED LIST changes: -ISOVUE-370 76% 100ML VIAL (Q9967) As Ordered ONE; +RANI-356 PO; -RANI1TAB6 PO
[2019-07-13 14:23] LABS: FREE T4 1.31 NG/DL (0.76-1.46); THYROID STIMULATING HORMONE 0.874 uIU/ML (0.358-3.740)
== END ==
LOC: M LAB REF 13:19
PROVIDERS: ATTEND Internal Medicine Nephrology
DX: E03.9 Hypothyroidism, unspecified (principal)

== ENCOUNTER → 2020-11-16 | Outpatient (CLI) | payer MEDICARE ==
[~2020-11-16] MED LIST changes: +AMLO1TAB24 PO; -AMLO5TAB6 PO; -RANI-356 PO; +RANI-397 PO
== END ==
LOC: M LABSMTC 08:46
PROVIDERS: ATTEND Pediatrics
DX: Z20.822 Contact with and (suspected) exposure to COVID-19 (principal)